=== PATIENT | female | born 1950 | race Caucasian/White ===

== ENCOUNTER 2020-08-02 09:36 | Emergency (ER) | payer MEDICARE, OTHER, MEDICAID ==
[~2020-08-02] VITALS: Ht 160 cm; Wt 44.5 kg
--- NOTE | 2020-08-02 10:13 | EKG ---
[address] [address] Test Date: 2020-08-02 Test Time: 10:04:57 Pat Name: APRIL HACKETT Department: Room: Gender: F Farm Tractor Mechanic: MODESTO : 1950 Requested By: KIMBERLI HERNANDEZ Order Number: [id number] Reading MD: Trevin Dacosta MD Measurements Intervals [employer] Rate: 84 P: 68 ND: 172 QRS: -52 QRSD: 90 T: 91 QT: 382 QTc: 455 Interpretive Statements SINUS RHYTHM ABNORMAL LEFT AXIS DEVIATION T ABNORMALITY IN HIGH LATERAL LEADS ABNORMAL ECG RI6.02 No previous ECG available for comparison Electronically Signed On 08-02-2020 14:14:20 CDT by Trevin Dacosta MD
[2020-08-02] MEDS ORDERED: predniSONE 20 MG TABLET PO ONE (10:15)
[2020-08-02] MEDS ORDERED: IV NORMAL SALINE 1,000ML 1,000 ML IV ONE ×2 (10:15→13:00)
[2020-08-02] MEDS ORDERED: IPRATRPIUM/ALBUTEROL 0.5/2.5MG 3 ML NEBU. NEB ONE (10:15)
--- NOTE | 2020-08-02 10:20 | PHYS DOC ---
Past History Past Medical History: Cancer, COPD, GERD, Hypertension, Stroke Past Surgical History: Appendectomy Alcohol Use: None General Adult EDM: Chief Complaint: SHORTNESS OF BREATH HPI: HPI: The history was obtained from the patient. Patient is a 70-year-old female with PMH significant for non-oxygen dependent COPD, hypertension, hyperlipidemia who presents with a chief complaint of shortness of breath. Patient states she is had progressive shortness of breath over the past week. She does note some nasal congestion and sinus pressure. She states this typically evolves into pneumonia given her experience. She states she is now having increased cough and sputum production. She does note some right-sided pleuritic chest discomfort. States the pain is sharp. Denies history of swelling in the legs. Denies history of blood clot in the legs or lungs. Does not take blood thinners. Denies any exertional chest pain. States she did have a stress test 2 years ago that she thinks was normal. She does still smoke tobacco. Has been using breathing treatments at home every 3 hours with minimal relief. Denies recent steroids or antibiotics. Denies history of ventilator requirement. Denies syncope or back pain. Denies vomiting or urinary symptoms. No other complaints. Review of Systems: Review of Systems: Constitutional: Denies fever or chills Eyes: Denies change in visual acuity HENT: Denies nasal congestion or sore throat Respiratory: Positive for cough and shortness of breath Cardiovascular: Denies chest pain or edema GI: Denies abdominal pain, nausea, vomiting, bloody stools or diarrhea : Denies dysuria Musculoskeletal: Denies back pain or joint pain Integument: Denies rash Neurologic: Denies headache, focal weakness or sensory changes Endocrine: Denies polyuria or polydipsia Lymphatic: Denies swollen glands Psychiatric: Denies depression or anxiety Heart Score: Risk Factors: Risk Factors: DM, Current or recent (<one month) smoker, HTN, HLP, family history of CAD, obesity. Risk Scores: Score 0 - 3: 2.5% MACE over next 6 weeks - Discharge Home Score 4 - 6: 20.3% MACE over next 6 weeks - Admit for Clinical Observation Score 7 - 10: 72.7% MACE over next 6 weeks - Early Invasive Strategies Allergies: Allergies: Allergies Coded Allergies Type Severity Reaction Last Updated Verified ranitidine Allergy Unknown 08/02/20 Yes Physical Exam: PE: Constitutional: Well developed, well nourished, no acute distress, non-toxic appearance. [] HENT: Normocephalic, atraumatic, bilateral external ears normal, oropharynx moist, no oral exudates, nose normal. [] Eyes: PERRLA, EOMI, conjunctiva normal, no discharge. [] Neck: Normal range of motion, no tenderness, supple, no stridor. [] Cardiovascular:Heart rate regular rhythm, no murmur [] Lungs & Thorax: Bilateral breath sounds clear to auscultation [] Abdomen: soft, no tenderness, no masses, no pulsatile masses. [] Skin: Warm, dry, no erythema, no rash. [] Back: No tenderness, no CVA tenderness. [] Extremities: No tenderness, no cyanosis, no clubbing, ROM intact, no edema. [] Neurologic: Alert and oriented X 3, normal motor function, normal sensory function, no focal deficits noted. [] Psychologic: Affect normal, judgement normal, mood normal. [] Current Patient Data: Labs: Laboratory Tests Test 08/02/20 10:23 08/02/20 11:25 White Blood Count 21.0 x10^3/uL Red Blood Count 5.19 x10^6/uL Hemoglobin 16.1 g/dL Hematocrit 48.0 % Mean Corpuscular Volume 92 fL Mean Corpuscular Hemoglobin 31 pg Mean Corpuscular Hemoglobin Concent 34 g/dL Red Cell Distribution Width 13.7 % Platelet Count 245 x10^3/uL Neutrophils (%) (Auto) 91 % Lymphocytes (%) (Auto) 4 % Monocytes (%) (Auto) 5 % Eosinophils (%) (Auto) 0 % Basophils (%) (Auto) 1 % Neutrophils # (Auto) 19.0 x10^3uL Lymphocytes # (Auto) 0.9 x10^3/uL Monocytes # (Auto) 1.0 x10^3/uL Eosinophils # (Auto) 0.0 x10^3/uL Basophils # (Auto) 0.1 x10^3/uL Platelet Estimate Pending Sodium Level 136 mmol/L Potassium Level 3.5 mmol/L Chloride Level 99 mmol/L Carbon Dioxide Level 26 mmol/L Anion Gap 11 Blood Urea Nitrogen 10 mg/dL Creatinine 0.9 mg/dL Estimated GFR (Cockcroft-Gault) 62.1 BUN/Creatinine Ratio 11 Glucose Level 126 mg/dL Calcium Level 9.4 mg/dL Magnesium Level 1.9 mg/dL Total Bilirubin 0.8 mg/dL Aspartate Amino Transf (AST/SGOT) 25 U/L Alanine Aminotransferase (ALT/SGPT) 29 U/L Alkaline Phosphatase 103 U/L DH-Rdh-I-Type Natriuretic Peptide 586 pg/mL Total Protein 8.1 g/dL Albumin 3.8 g/dL Albumin/Globulin Ratio 0.9 Lipase 62 U/L Lactic Acid Level 2.0 mmol/L Current Medications Medications (Trade) Dose Ordered Sig/Sully Route PRN Reason Start Time Stop Time Status Last Admin Dose Admin Sodium Chloride 1,000 ml @ 1,000 mls/hr 1X ONCE IV 08/02/20 10:15 08/02/20 11:14 DC 08/02/20 10:31 Albuterol/ Ipratropium (Duoneb) 9 ml 1X ONCE NEB 08/02/20 10:15 08/02/20 10:20 DC 08/02/20 11:16 Prednisone (Prednisone) 60 mg 1X ONCE PO 08/02/20 10:15 08/02/20 10:20 DC 08/02/20 10:31 Iohexol (Omnipaque 350 Mg/ml) 100 ml 1X ONCE IV 08/02/20 10:30 08/02/20 10:31 DC 08/02/20 11:35 Info (Do NOT chart on this entry -- for MONITORING) 1 each PRN DAILY PRN MC SEE COMMENTS 08/02/20 10:30 08/04/20 10:29 Iohexol (Omnipaque 350 Mg/ml) 100 ml 1X ONCE IV 08/02/20 11:30 08/02/20 11:34 DC Vital Signs: Vital Signs Date Time Temp Pulse Resp B/P (MAP) Pulse Ox O2 Delivery O2 Flow Rate FiO2 08/02/20 10:05 97.2 88 18 161/98 (119) 93 Room Air EKG: EKG: EKG consistent with normal sinus rhythm. Ventricular rate of 84 bpm. Left axis noted. ST flattening noted in the inferior leads. Slight ST segment depression noted in the lateral precordial leads. No ST elevation appreciated. No previous EKG for comparison. [] Radiology/Procedures: Radiology/Procedures: [][address] [address] IMAGING REPORT Signed PATIENT: FRANCK ZARATE MACCOUNT: [id number] : 09/12/1961 LOCATION: ER AGE: 58 SEX: F EXAM STATUS: REG ER ORD. PHYSICIAN: KIMBERLI HERNANDEZ DO REASON: RLE SWELLING PROCEDURE: VENOUS LOWER EXTREMITY RIGHT EXAM: Right lower extremity venous Doppler sonogram. HISTORY: Pain and swelling. TECHNIQUE: Schneider scale and color Doppler sonographic evaluation of the right lower extremity veins with spectral waveform analysis was performed. FINDINGS: There is normal color flow, normal compressibility and there are normal spectral waveforms in the common femoral, superficial femoral, popliteal, posterior tibial and greater saphenous veins. IMPRESSION: No Doppler evidence of lower extremity deep venous thrombosis. Electronically signed by: Lulú Aguirre MD (08/02/2020 12:10 PM) [id number] DICTATED AND SIGNED BY: LULÚ AGUIRRE MD DATE: 08/02/20 1210 CC: LETICIA DANG DO; KIMBERLI HERNANDEZ DO ~ Course & Med Decision Making: Course & Med Decision Making Pertinent Labs and Imaging studies reviewed. (See chart for details) [] Patient is a 70-year-old female presents with chief complaint of progressive shortness of breath over the past 2 weeks. She is not on oxygen and COPD patient at home. Initial oxygenation 99% on room air. Lungs overall clear to auscultation. Basic labs were obtained. She does have a leukocytosis of 21,000. This could be reactive secondary to recent albuterol usage. However given she does report increasing cough and sputum production broad-spectrum antibiotics including vancomycin and cefepime were administered. Blood cultures and covered swabs are pending. Lactate normal. CT imaging of the chest does reveal abnormal results. Right middle lobe does show near complete collapse unclear whether this is related to malignancy versus infectious etiology. Patient does receive pulmonology care at [facility] via Dr. Berry. I did discuss the case with her hospitalist who spoke with Dr. Berry. Based on their current bed availability and acuity of patient they do feel she can be appropriately treated in our facility and do not recommend emergent transfer. Patient was signed out to our hospitalist at [facility]. She has remained hemodynamically stable. She will be transferred to [facility]. Telma Disclaimer: Telma Disclaimer: This electronic medical record was generated, in whole or in part, using a voice recognition dictation system. Departure Departure: Impression: Primary Impression: Community acquired bacterial pneumonia Additional Impressions: COPD (chronic obstructive pulmonary disease) Qualified Codes: J44.9 - Chronic obstructive pulmonary disease, unspecified Leukocytosis Qualified Codes: D72.829 - Elevated white blood cell count, unspecified Abnormal chest CT Disposition: HOME/RESIDENCE PRIOR TO ADM Condition: STABLE Referrals: PCP,NO (PCP) Justification of Admission: Justification of Admission: Justification of Admission Dx: Yes Comments: CAP, abnormal chest CT KIMBERLI HERNANDEZ DO Aug 02, 2020 10:20
[2020-08-02] MEDS ORDERED: CONTRAST GIVEN. MC PRN (10:30)
[2020-08-02] MEDS ORDERED: IOHEXOL 350 MG/ML 100 ML VIAL. IV ONE ×2 (10:30→11:30)
[2020-08-02 10:39] LABS: BASO # 0.1 x10^3/uL (0.0-0.2); BASO % 1 % (0-3); EOS % 0 % (0-3); HEMOGLOBIN 16.1 g/dL (12.0-15.5); LYMPH # 0.9 x10^3/uL (1.0-4.8); LYMPH % 4 % (24-48); MEAN CORPUSCULAR HEMOGLOBIN 31 pg (25-35); MEAN CORPUSCULAR HGB CONC 34 g/dL (31-37); MEAN CORPUSCULAR VOLUME 92 fL (79-100); MONO % 5 % (0-9); NEUT % 91 % (31-73); PLATELET COUNT 245 x10^3/uL (140-400); RED BLOOD COUNT 5.19 x10^6/uL (3.50-5.40); RED CELL DISTRIBUTION WIDTH 13.7 % (11.5-14.5)
[2020-08-02 10:48] LABS: CALCIUM 9.4 mg/dL (8.5-10.1); CREATININE 0.9 mg/dL (0.6-1.0); GFR 62.1; POTASSIUM 3.5 mmol/L (3.5-5.1)
[2020-08-02 11:01] LABS: ALBUMIN 3.8 g/dL (3.4-5.0); ALBUMIN/GLOBULIN RATIO 0.9 (1.0-1.7); MAGNESIUM 1.9 mg/dL (1.8-2.4); TOTAL BILIRUBIN 0.8 mg/dL (0.2-1.0); TOTAL PROTEIN 8.1 g/dL (6.4-8.2)
--- NOTE | 2020-08-02 11:19 | RAD ---
EXAM: CHEST 1 VIEW History: Shortness of breath, COPD COMPARISON: None available. TECHNIQUE: Single portable radiograph of the chest FINDINGS: The cardiac silhouette is unremarkable. Hyperinflated lungs likely changes of COPD with patchy bibasilar lung airspace opacities. The costophrenic sulci are clear and well demarcated. IMPRESSION: 1. Patchy bibasilar lung airspace opacities in the bibasilar lungs likely atelectasis or infiltrates. Follow-up to resolution. 2. Hyperinflated lungs likely changes of COPD. Electronically signed by: Jone Knight MD (08/02/2020 11:16 AM) [id number]
--- NOTE | 2020-08-02 12:31 | RAD ---
CTA OF THE CHEST WITH AND WITHOUT CONTRAST Clinical indications: Pleuritic chest pain. Shortness of air. History of COPD Technique: Noncontrast axial localizer was performed. After IV infusion of 100 cc of Isovue-370, helical CT scanning of the chest was performed using the CT pulmonary embolism protocol. A coronal MIP reconstruction was generated. PQRS compliance Statement One or more of the following individualized dose reduction techniques were utilized for this study: 1. Automated exposure control 2. Adjustment of the mA and/or kV according to patient size 3. Use of iterative reconstruction technique Comparison: No previous chest CT available. Findings: No pulmonary embolism is evident. No focal aneurysmal dilatation or dissection of the thoracic aorta is seen. No enlarged thoracic lymphadenopathy is evident. Heart size is normal and no pericardial effusion is seen. There is soft tissue thickening of the right hilum with occlusion of the right middle lobe bronchus. There is complete atelectasis of the right middle lobe. Ill-defined centrilobular groundglass lung infiltrates are seen within the right lower lobe. There are couple denser nodular infiltrates within the lateral aspect of the right lower lobe. This could represent distal airway infectious or inflammatory disease. This is seen to a lesser extent involving the medial aspect of the left lower lobe. In addition, there is a small noncalcified lung nodule within the lateral basal segment of the left lower lobe seen on series 4 and image 142. This measures 4 mm in size. There are 2 nodules seen more superiorly within the lateral basal segment of the left lower lobe measuring 5 mm in size. This is seen on series 4 and images 100 and 101. Another nodule is seen within the lateral basal segment of the left lower lobe image 118 measuring 4 mm in size. Old calcified granulomatous disease of the lung apices is seen bilaterally with associated scarring. Bilateral emphysema is seen more prominent within the upper lobes. No pneumothorax or pleural effusion is seen. No adrenal mass is seen. No lytic process is seen. IMPRESSION: Complete collapse of the right middle lobe with occlusion of the right middle lobe bronchus. Soft tissue thickening of the right hilum is seen. Therefore, bronchogenic malignancy is certainly possible versus occlusive stricture of the right middle lobe bronchus. Bilateral lower lobe centrilobular nodular lung infiltrates which may represent distal airway infectious or inflammatory disease. There is additional lung nodules of the left lower lobe. Metastatic disease is in the differential diagnosis and therefore short-term follow-up in 2-3 months is recommended. Bilateral emphysema. No pulmonary embolism. Electronically signed by: Casper Pickard MD (08/02/2020 12:28 PM) [id number]
[2020-08-02] MEDS ORDERED: VANCOMYCIN 1 GM in IV NORMAL SALINE 250ML 250 ML IV ONE (13:00)
[2020-08-02] MEDS ORDERED: CEFEPIME HCL 2 GM VIAL IV ONE (13:14)
[2020-08-02] MEDS ORDERED: VANCOMYCIN 1 GM VIAL. ONE (13:14)
[2020-08-02] MEDS ORDERED: IV NORMAL SALINE 100ML 100 ML ONE (13:14)
[2020-08-02] MEDS ORDERED: IV NORMAL SALINE 250ML 250 ML ONE (13:14)
[2020-08-02] MEDS ORDERED: CEFEPIME HCL 2 GM in IV NORMAL SALINE 100ML 100 ML IV SCH (13:15)
[2020-08-02 14:03] LABS: % BANDS 7 % (0-9); % BASOS 1 % (0-3); % LYMPHS 4 % (24-48); % MONOS 5 % (0-10); % SEGS 83 % (35-66)
[2020-08-02 14:04] LABS: PLT ESTIMATE ADEQUATE (ADEQUATE)
[2020-08-02 15:28] VITALS: BP 150/85
[2020-08-02 15:47] LABS: BILIRUBIN,URINE NEG (NEG); CLARITY,URINE CLEAR; COLOR,URINE STRAW; GLUCOSE,URINE NEG (NEG)
[2020-08-02 15:48] LABS: BACTERIA,URINE 0 /HPF (0-FEW); NITRITE,URINE NEG (NEG); UROBILINOGEN,URINE 0.2 mg/dL (0.2 mg/dL); WBC,URINE 0 /HPF (0-4)
[2020-08-02] MEDS ORDERED: ACETAMINOPHEN 500 MG TABLET PO ONE (16:15)
--- NOTE | 2020-08-04 09:26 | NUR ---
IP: notified patient of COVID result.
== END 2020-08-02 16:44 | disposition left against medical advice (07) ==
LOC: ER 09:36
DX: J15.9 Unspecified bacterial pneumonia (principal); J44.9 Chronic obstructive pulmonary disease, unspecified; D72.829 Elevated white blood cell count, unspecified; R93.89 Abnormal findings on diagnostic imaging of other specified body structures; Z20.828 Contact with and (suspected) exposure to other viral communicable diseases; I10 Essential (primary) hypertension; E78.5 Hyperlipidemia, unspecified; K21.9 Gastro-esophageal reflux disease without esophagitis; Z86.73 Personal history of transient ischemic attack (TIA), and cerebral infarction without residual deficits; Z88.8 Allergy status to other drugs, medicaments and biological substances
CPT/HCPCS: 36415; 71045; 71275; 80053; 81001; 83605; 83690; 83735; 83880; 85007; 85025; 87040; 93005; 94640; 96361; 96365; 96366; 96375; 99285; J0692; J3370; J7030; J7050; J7512; Q9967; U0003